=== PATIENT | female | born 1980 | race Caucasian/White ===

== ENCOUNTER 2016-11-01 22:48 | Observation (INO) | payer BC ==
[~2016-11-01] VITALS: Ht 157.5 cm; Wt 65.6 kg
[2016-11-02 00:34] LABS: BASOPHILS % (AUTO) 2 % (0-2); EOSINOPHILS # (AUTO) 0.1 10^3uL; EOSINOPHILS % (AUTO) 2 % (0-4); LYMPHOCYTES # (AUTO) 1.7 X10^3; MEAN CORPUSCULAR HGB CONC 34.4 g/dL (31.0-37.0); MEAN CORPUSCULAR VOLUME 97 FL (80-100); MONOCYTES # (AUTO) 0.4 X10^3; MONOCYTES % (AUTO) 8 % (3-11); NEUTROPHILS # (AUTO) 2.7 X10^3; NEUTROPHILS % (AUTO) 55 % (51-67); PLATELET COUNT 268 10^3uL (150-450); WHITE BLOOD COUNT 4.89 10^3uL (4.0-11.0)
[2016-11-02 00:39] LABS: MEAN CORPUSCULAR HEMOGLOBIN 33.2 PG (26.0-34.0)
[2016-11-02 00:42] LABS: ALBUMIN 4.6 g/dL (3.4-5.0); ALKALINE PHOSPHATASE 94 U/L (38-126); ANION GAP 20.5 MEQ/L (3-15); BUN/CREATININE RATIO 17 (10-20)
--- NOTE | 2016-11-02 00:50 | NUR ---
Lab, Ethan, called to report ETOH over 300. He is diluting it and rerunning it to get a specific reading.
[2016-11-02 01:30] LABS: BILIRUBIN,URINE Negative (Negative); COLOR,URINE Yellow; GLUCOSE, URINE (UA) Negative (Negative); LEUKOCYTE ESTERASE ,URINE Negative (Negative); PH,URINE 6.5 (5.0 - 8.0); UROBILINOGEN,URINE 0.2 mg/dL (0.2-1.0)
--- NOTE | 2016-11-02 01:32 | NUR ---
PT asked to speak wiith . Dr. Gold said she could call him. I gave pt the phone and a few minutes later she was slamming and throwing the phone. I took the phone as it was broken anyways. Pt screamed and cursed that it wasn't fair that her can be home drunk and that she had to stay here. A short time later she was trying to leave her room. The assistant refinery operator stopped her from leaving. The whole situation was witnessed by Carli, Phthalic Acid Purifier.
[2016-11-02 01:38] LABS: CLARITY,URINE Slightly Cloudy
[2016-11-02 01:40] LABS: RBC,URINE 0-2 /HPF; URINE CENTRIFUGED VOLUME 12 mL
--- NOTE | 2016-11-02 02:09 | NUR ---
Pt sleeping in room.
[2016-11-02] MEDS ORDERED: MULTIVITAMIN INJ 10 ML, THIAMINE INJ 100 MG, MAGNESIUM SULFATE 1GM VIAL 2 GM in D5LR 1,... IV SCH ×2 (03:03→09:03)
[2016-11-02] MEDS ORDERED: IBUPROFEN 600 MG (MOTRIN) TAB PO PRN (03:05)
[2016-11-02] MEDS ORDERED: HALOPERIDOL 5 MG/ML (HALDOL) 1 ML AMP IM PRN ×2 (03:05→09:05)
[2016-11-02] MEDS ORDERED: METOCLOPRAMIDE 10 MG/2 ML (REGLAN) VIAL IV PRN (03:05)
[2016-11-02] MEDS ORDERED: THIAMINE 100 MG/ML (VITAMIN B1) 2 ML VIAL IM SCH ×2 (03:05→09:05)
[2016-11-02] MEDS ORDERED: ONDANSETRON 2 MG/ML (Z0FRAN) 2 ML VIAL IV PRN (03:05)
[2016-11-02] MEDS ORDERED: LORazepam 2 MG/ML (ATIVAN) 1 ML VIAL IV PRN ×2 (03:05→09:05)
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
[2016-11-02 03:22] VITALS: BP 170/115
[2016-11-02 03:41] LABS: AMPHETAMINE SCREEN, URINE Negative (Negative); CANNABINOID SCREEN, URINE Negative (Negative); HCG,QUALITATIVE URINE Negative (Negative); METHAMPHETAMINE SCREEN URINE S NEGATIVE (NEGATIVE); OPIATE SCREEN URINE Negative (Negative); PROPOXYPHENE STAT NEGATIVE (NEGATIVE)
[2016-11-02] MEDS ORDERED: MULTIVITAMINS (MVI) 2 5 ML VIALS IV ONE (03:54)
[2016-11-02] MEDS ORDERED: D5LR 1,000 ML IV ONE (03:54)
[2016-11-02] MEDS ORDERED: MAGNESIUM SULFATE 1 GM/2 ML VIAL ONE (03:54)
[2016-11-02] MEDS ORDERED: SODIUM CHLORIDE FLUSH 10 ML ONE (03:55)
--- NOTE | 2016-11-02 04:16 | NUR ---
After pt was able to speak with parent on the phone, she was agreeable to this RN starting IV, started 20g IV in LFA with minimal discomfort to pt. Banana bag is infusing at 75ml/hr. Currently resting in bed on right side, resp are even and nonlabored, call light in reach, will continue to monitor.
--- NOTE | 2016-11-02 07:30 | NUR ---
Patient sleeping in bed upon shift assessment. Arouses easily to verbal stimuli. Reports anxiety, tremors, and concern about current situation. States "I do not understand why I have to be here". Positive reassurance provided. HR at this time = [address] Mckeon notified of current symptoms. New order received. Updated on plan of care for shift. Will continue to monitor.
[2016-11-02 07:43] VITALS: BP 123/73
[2016-11-02] MEDS ORDERED: NS FLUSH 3 ML PRN IV (08:25)
[2016-11-02] MEDS ORDERED: NS FLUSH 10 ML PRN IV (08:25)
--- NOTE | 2016-11-02 08:28 | NUR ---
PRN Ativan and Zofran provided for nausea, tremors, and anxiety.
[2016-11-02] MEDS ORDERED: ENOXAPARIN 40 MG/0.4 ML (LOVENOX) SYR SC SCH (09:00)
[2016-11-02] MEDS ORDERED: NS FLUSH 3 ML DAILY IV SCH (09:00)
[2016-11-02] MEDS ORDERED: ATENOLOL 25 MG (TENORMIN) TAB PO SCH (09:05)
--- NOTE | 2016-11-02 09:58 | NUR ---
NUTRITION ASSESSMENT Level 1 Patient: Rayna Bell Age/Sex: 36/F Date Screened: 11-02-16 Weight: 144.3#/65.6 kg Height: 62 inches Primary Diagnosis: alcohol withdrawal Diet Order: regular Relevant labs: serum alcohol 385.0 (yesterday) Food allergies: N Nutrition Assessment Criteria Age over 80: N Body Mass Index (BMI) under 19: N Admission Screening Indicates Risk? N Moderate/High Risk Diagnosis: 3 points TPN or PPN: N NPO or clear liquid diet: N Serum Glucose <70 or >180: N/A Hgb A1c >6.7: N/A Total: 3 points Risk Screen: __ Patient at low nutritional risk based on available data; reevaluate in 5-7 days _X_ Patient at moderate nutritional risk based on available data; reevaluate in 3-5 days __ Patient at high nutritional risk; complete Nutrition Assessment within 48 hours of admission.
[2016-11-02 11:02] VITALS: BP 139/92
[2016-11-02 11:42] LABS: BASOPHILS % (AUTO) 2 % (0-2); EOSINOPHILS # (AUTO) 0.1 10^3uL; EOSINOPHILS % (AUTO) 2 % (0-4); LYMPHOCYTES # (AUTO) 0.8 X10^3; MEAN CORPUSCULAR HEMOGLOBIN 33.8 PG (26.0-34.0); MEAN CORPUSCULAR HGB CONC 34.8 g/dL (31.0-37.0); MEAN CORPUSCULAR VOLUME 97 FL (80-100); MONOCYTES # (AUTO) 0.3 X10^3; MONOCYTES % (AUTO) 9 % (3-11); NEUTROPHILS # (AUTO) 2.2 X10^3; NEUTROPHILS % (AUTO) 64 % (51-67); PLATELET COUNT 248 10^3uL (150-450); WHITE BLOOD COUNT 3.39 10^3uL (4.0-11.0)
[2016-11-02] MEDS ORDERED: CHLORDIAZEPOXIDE 25 MG PO PRN (12:10)
--- NOTE | 2016-11-02 12:12 | NUR ---
MULTIDISCIPLINARY MTG/DR. ROBLEDO: Robe Ma will be contacted for a consult. Pt. feels embarrassed about being here and doesn't understand why she is here. Withdrawal protocol has been started.
[2016-11-02 12:17] LABS: ALBUMIN 4.1 g/dL (3.4-5.0); ANION GAP 16.7 MEQ/L (3-15)
--- NOTE | 2016-11-02 13:58 | NUR ---
MED REC COMPLETE--patient reports no medications. Interview conducted by Humphrey Do, Pharm. D. Candidate 2017
--- NOTE | 2016-11-02 14:02 | NUR ---
Discharge order received. Patient tolerates PO Librium well. at bedside. Both cheerful and conversing. IV discontinued with catheter intact. No redness or swelling noted at insertion site. Old cuts noted near site. Instructions provided with verbal and written understanding expressed. Ambulates to private car accompanied by SCRAP DROP CRANE OPERATOR and . All possessions with patient including prescription. No further needs.
== END 2016-11-02 14:04 | disposition home or self-care (01) ==
LOC: ED 22:51 → MED/SURG 11-02 02:53
PROVIDERS: ADMIT Family Medicine; ATTEND Family Medicine
DX: F10.220 Alcohol dependence with intoxication, uncomplicated (principal); Y90.8 Blood alcohol level of 240 mg/100 ml or more; R00.0 Tachycardia, unspecified; R74.0 Nonspecific elevation of levels of transaminase and lactic acid dehydrogenase [LDH]; R45.851 Suicidal ideations; F99 Mental disorder, not otherwise specified
CPT/HCPCS: 36415; 80053; 80307; 80320; 80329; 81003; 81015; 81025; 85025; 96365; 96366; 96375; 99218; 99284; J2060; J2405; J3411; J3475